=== PATIENT | male | born 1995 | race Caucasian/White ===

== ENCOUNTER 2023-07-05 13:29 | Emergency (ER) | payer MEDICAID, OTHER, SELFPAY ==
--- NOTE | ~2023-07-05 | XR_ITS ---
EXAMINATION: XR HAND, LEFT CLINICAL INFORMATION: Pain status post fall. COMPARISON: None available. TECHNIQUE: Limited two-view examination. The patient was unable to hold still during the exam. FINDINGS: There is a comminuted fracture at the base of the fifth metacarpal. Due to the limited views, the presence or absence of articular involvement is unknown. There is significant soft tissue swelling over the fracture. XR/XR hand LT min 3V IMPRESSION: Limited exam. Comminuted fracture base of the fifth metacarpal.
[2023-07-05 13:56] VITALS: BMI 27.1
[2023-07-05 14:16] VITALS: BP 137/88; PULSE 76; RESP 18; TEMP 36.4; O2SAT 99
--- NOTE | 2023-07-05 16:18 | HO.SUDE ---
Addendum entered by Frnacisco Lucia 07/05/23 17:15: Pt no longer interested in ATS at this time and would like to go home. Recovery resources were provided. Original Note: Met with pt in ED22[facility] who is here for potential OD. Pt reports taking about 2 bundles of heroin intravenously but doesn't usually use that amount. Pt informs he didn't intend to take more than usual today and this would be his first time overdosing. Pt has been using daily for the past 5 years with no history or MAT or ATS and was not sure how to get clean needles. Pt states he has been crashing on his friends couch and is otherwise homeless. At this time pt is interested in ATS and is willing to go anywhere. Harm reduction and overdose prevention was reviewed with pt who verbalized understanding and has no other questions or concerns at this time.
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
[2023-07-05 16:52] VITALS: BP 109/78; PULSE 82; RESP 16; TEMP 36.8; O2SAT 100
[2023-07-05] MEDS: Naloxone HCl Nasal TAKE HOME 4 MG SPRAY 8 MG NOSTRILALT (17:26)
--- NOTE | 2023-07-05 18:20 | PC.NURSE ---
pt seen by ice skating coach, cleared for discharge. this rn spoke with pt's mother Tracey [phone]. his mother will send an uber to pick him up from the er. waiting for uber to arrive at this time. meal tray given
--- NOTE | 2023-07-05 20:21 | PC.NURSE ---
Mom contacting multiple times by this RN as she was suposed to be arranging transportation home. Per mom, she has been unable to get on contact with the person who was supposed to be coming to transport pt home. Ronel obtained for this pt. Pt provided with home narcan and escorted to [facility] to retrieve his belongings.
--- NOTE | 2023-07-05 20:32 | ECG_ITS ---
Test Reason : pain Blood Pressure : / mmHG Vent. Rate : 087 BPM Atrial Rate : 087 BPM P-R Int : 152 ms QRS Dur : 074 ms QT Int : 400 ms P-R-T Axes : 000 077 051 degrees QTc Int : 481 ms Normal sinus rhythm Possible Early repolarization Otherwise normal ECG No previous ECGs available Referred By: Aric Ribeiro Electronically Signed By:LESLEY OLSON MD
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
--- NOTE | 2023-07-05 20:43 | PC.NURSE ---
Sitter at bedside.
[2023-07-05 21:36] LABS: MANUAL DIFF FLAG NO
[2023-07-05 21:38] LABS: Basophils Absolute Auto 0.1 X10*3/uL (0.0-0.2); Basophils Percent Auto 0.5 % (0-2); Eosinophils Absolute Auto 0.1 X10*3/uL (0.0-0.4); Eosinophils Percent Auto 0.6 % (0-4); Hematocrit 38.3 % (42.0-52.0); Hemoglobin 12.6 g/dl (14.0-18.0); Imm Gran Abs Auto 0.02 X10*3/uL (0.00-0.03); Imm Gran Pct Auto 0.2 % (0.0-0.4); Lymphocytes Absolute Auto 2.7 X10*3/uL (1.2-4.9); Lymphocytes Percent Auto 23.4 % (20-40); Mean Corpuscular HGB Conc 32.9 g/dl (31.0-36.0); Mean Corpuscular Hemoglobin 26.9 pg (27.0-33.0); Mean Corpuscular Volume 81.8 fL (80.0-98.0); Mean Platelet Volume 10.7 fL (9.4-12.4); Monocytes Absolute Auto 0.8 X10*3/uL (0.1-1.2); Monocytes Percent Auto 7.1 % (2-11); Neutrophils Absolute Auto 7.7 x10*3/uL (2.0-8.3); Neutrophils Percent Auto 68.2 % (45-73); Platelet Count 351 X10*3/uL (160-400); Red Blood Count 4.68 X10*6/uL (4.60-5.80); Red Cell Distribution Width 15.9 % (11.0-16.0); White Blood Count 11.4 X10*3/uL (4.8-10.8)
[2023-07-05 22:01] LABS: Acetaminophen LAB < 17 mcg/mL (<30); Alanine Aminotransferase 17 U/L (0-40); Albumin Level 4.3 g/dL (3.5-5.0); Alkaline Phosphatase 86 U/L (39-117); Anion Gap 16 (12-20); Aspartate Amino Transferase 28 U/L (5-37); Bilirubin Total 0.6 mg/dL (0.0-1.0); Blood Urea Nitrogen 13 mg/dL (9-16); Calcium 9.7 mg/dL (8.4-10.2); Carbon Dioxide 21 mmol/L (22-29); Chloride 105 mmol/L (96-108); Creatinine Clr Calc Pharmacy 170.9; Estimated Glomerular Filt Rate > 60; Ethanol < 10 mg/dL; Glucose Random 97 mg/dL (60-115); Lipase 46 U/L (8-78); Potassium 3.9 mmol/L (3.3-5.1); Salicylate < 5.0 mg/dL (15-30); Sodium 138 mmol/L (135-145); Total Protein 8.8 g/dL (6.5-8.0)
[2023-07-05 22:16] VITALS: BP 138/77; PULSE 80; RESP 16; TEMP 36.7; O2SAT 100
[2023-07-05 23:51] LABS: Amphetamine Screen Urine POSITIVE (Not Detect); Barbiturates, Urine Not Detected (Not Detect); Benzodiazepines Screen Urine Not Detected (Not Detect); Cannabinoid Screen Urine Not Detected (Not Detect); Cocaine Screen Urine Not Detected (Not Detect); Fentanyl, urine POSITIVE (Not Detect); Opiate Screen Urine Not Detected (Not Detect); Phencyclidine Screen Urine Not Detected (Not Detect)
[2023-07-05 23:55] LABS: Appearance Urine Clear; Color Urine Yellow; Glucose Urine UA Negative (Negative); Leukocyte Esterase Urine Small (1+) (Negative); Nitrite Urine Negative (Negative); UMIC TRIGGER UACC YES; Urine Blood Negative (Negative); Urine Ketones Negative (Negative); Urine Protein Negative (Neg-Trace)
[2023-07-06] LABS: Bacteria Urine None Seen (None Seen); Hyaline Casts Urine 0-2 /LPF (0-2); RBC Urine 0-2 /HPF (0-2); Squamous Epithelial Cell Urine 0-2 /HPF (0-2); UACC Culture Trigger YES
[2023-07-06 04:54] VITALS: BP 123/69; PULSE 87; RESP 16; TEMP 37.2; O2SAT 98
--- NOTE | 2023-07-06 04:57 | PC.NURSE ---
assumed care of pt
--- NOTE | 2023-07-06 04:59 | PC.NURSE ---
assumed care of pt
[2023-07-06] MEDS: OLANZapine 10 MG VIAL IM (08:39)
[2023-07-06] MEDS: LORazepam 2 MG/ML VIAL IM ×2 (08:47→10:59)
--- NOTE | 2023-07-06 09:01 | PC.NURSE ---
patients perception of reality is still a little skewed, asked about us killing him. t/w provided some water and told him he was welcome to nap.
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
[2023-07-06 09:45] VITALS: BP 98/69; PULSE 128
--- NOTE | 2023-07-06 09:56 | PC.NURSE ---
client had witnessed fall in room client was being watched on screen due to unusual behaviors, client resisting redirection
[2023-07-06] MEDS: diphenhydrAMINE HCL 50 MG/ML VIAL IM (11:01)
--- NOTE | 2023-07-06 11:04 | PC.NURSE ---
Patient returned from POD, hallucinating, restless. Attempting to slip legs between side rails of bed. Patient consented to IM injections being given.
[2023-07-06 11:25] VITALS: BP 120/61; PULSE 79
--- NOTE | 2023-07-06 11:55 | PC.NURSE ---
Resting comfortably, breathing even and unlabored, 1:1 remains at bedside for safety
--- NOTE | 2023-07-06 13:00 | PC.NURSE ---
Resting comfortably with eyes closed, breathing even and unlabored
--- NOTE | 2023-07-06 13:16 | PC.NURSE ---
Patient stood up from bed and urinated through clothes and onto floor. Continues with hallucinations reaching for objects in the air. Patient changed and seated in chair in room. 1:[address]
--- NOTE | 2023-07-06 15:57 | PC.NURSE ---
Patient calm, resting quietly. Breathing even and unlabored 1:1 remains at bedside
--- NOTE | 2023-07-06 16:54 | MHC.EDTECH ---
Nurse instructed this case technician to hold off on vitals and let patient sleep.
--- NOTE | 2023-07-06 18:38 | PC.NURSE ---
Continues to rest comfortably in bed, no s/s of pain or discomfort, breathing even and unlabored
--- NOTE | 2023-07-06 19:36 | PC.NURSE ---
assumed care of pt at this time; 1:1 sitter at bedside. pt sleeping in stretcher respirations even and unlabored.
[2023-07-06 20:10] VITALS: PULSE 77
--- NOTE | 2023-07-06 20:17 | PC.NURSE ---
Addendum entered by Madhuri Rico 07/06/23 22:07: REGINA ordered zofran which pt refused as vomiting resolved. Original Note: pt had an episode of vomiting; requested meds to help with n/v. cows 5. Reji TAPIA aware.
[2023-07-06 20:19] VITALS: PULSE 79; RESP 16; O2SAT 100
[2023-07-06] MEDS: Ondansetron ODT 4 MG TAB.RAPDIS TRANSLINGU (22:49)
--- NOTE | 2023-07-06 22:54 | PC.NURSE ---
pt now requesting zofran as started feeling nauseous; zofran given per Reji TAPIA approval.
[2023-07-07 07:34] VITALS: BP 115/71; PULSE 92; RESP 12; O2SAT 98
--- NOTE | 2023-07-07 08:20 | PC.NURSE ---
attempted to medicate pt with 2mg PO Ativan for a COWS assessment of 12. pt asleep at this time. will hold off on medicating until pt awake. [plan to splint pts L hand when he wakes as well. pt resting in NAD in the stretcher at this time, skin PWD.
[2023-07-07] MEDS: LORazepam 1 MG TABLET 2 MG PO (10:02)
--- NOTE | 2023-07-07 10:24 | MHC.EDTECH ---
Ulnar gutter splint was placed on L hand by this song writer. pt tolerated well, REGINA Newell aware
--- NOTE | 2023-07-07 12:34 | PM.PSYCN ---
History of Present Illness Date of Service: 07/07/2023 Chief Complaint: OPIOD USE Reason for Consult: agitation Requesting physician: Sina Mcclendon Discussed with referring provider: Yes Sources of Information: patient interviewed, chart reviewed and crisis/core team assessment reviewed HPI Narrative: Mr. Aguirre is a 28 year-old male with hx of opioid and metaamphenatine use disorder who presented twice on 07/05, agitated, combative. His utox was positive for fentanyl and amphetamines. Pt receved olanzapine and ativan for agitation. Today, pt presents as calmer, but in physical distress due to opioid withdrawal. He reports muscle spams all over. He reports loose stools, Gi discomfort. No sweating. VS stable. No diaphoresis. pt denies SI/HI. He reports he was confused during the past few days. He denies VH/AH and does not appear internally preoccupied. He is in physical distress, with loose stool, and stomach cramps. He also reports muscle aches. He is calmer and splint was finally able to be placed. Diagnostics Vital Signs (24Hr): Vital Signs - 24 hr 07/06/23 20:19 07/07/23 07:34 Pulse Rate 79 92 Respiratory Rate 16 12 Blood Pressure 115/71 Pulse Oximetry 100 98 Oxygen Delivery Method Room Air Room Air BMI result Body Mass Index 27.1 Labs 07/05/23 21:30 07/05/23 21:30 Labs: Laboratory Results - last 48 hr 07/05/23 07/05/23 07/05/23 21:30 23:36 23:36 WBC 11.4 H RBC 4.68 Hgb 12.6 L Hct 38.3 L MCV 81.8 MCH 26.9 L MCHC 32.9 RDW 15.9 Plt Count 351 MPV 10.7 Immature Gran % (Auto) 0.2 Neut % (Auto) 68.2 Lymph % (Auto) 23.4 [place] % (Auto) 7.1 Eos % (Auto) 0.6 Baso % (Auto) 0.5 Lymph # (Auto) 2.7 [place] # (Auto) 0.8 Eos # (Auto) 0.1 Baso # (Auto) 0.1 Abs Immat Gran (auto) 0.02 Absolute Neuts (auto) 7.7 Absolute Nucleated RBC 0.000 Nucleated RBC % (auto) 0.0 Sodium 138 Potassium 3.9 Chloride 105 Carbon Dioxide 21 L Anion Gap 16 BUN 13 Creatinine 0.70 Estim Creat Clear Calc 170.9 Estimated GFR > 60 Random Glucose 97 Calcium 9.7 Total Bilirubin 0.6 AST 28 ALT 17 Alkaline Phosphatase 86 Total Protein 8.8 H Albumin 4.3 Lipase 46 Urine Color Yellow Cancelled Urine Appearance Clear Urine pH Ur Specific [place] Urine Protein Urine Glucose (UA) Urine Ketones Urine Blood Urine Nitrite Ur Leukocyte Esterase Urine RBC Urine WBC Urine WBC Clumps Ur Squamous Epith Cells Ur Transition Epith Cell Ur Renal Epithelial Cell Calcium Oxalate Crystal Leucine Crystals Cystine Crystals Tyrosine Crystals Other Crystals Urine Bacteria Urine Parasites Bilirubin Casts Epithelial Casts Fatty Casts Hyaline Casts Granular Casts Waxy Casts Broad Casts RBC Casts WBC Casts Other Casts Urine Trichomonas Urine Yeast Salicylates < 5.0 L Urine Opiates Screen Urine Fentanyl Screen Acetaminophen < 17 Ur Barbiturates Screen Ur Phencyclidine Scrn Ur Amphetamines Screen U Benzodiazepines Scrn Urine Cocaine Screen U Marijuana (THC) Screen Ethyl Alcohol < 10 07/05/23 07/05/23 07/05/23 23:36 23:36 23:36 WBC RBC Hgb Hct MCV MCH MCHC RDW Plt Count MPV Immature Gran % (Auto) Neut % (Auto) Lymph % (Auto) [place] % (Auto) Eos % (Auto) Baso % (Auto) Lymph # (Auto) [place] # (Auto) Eos # (Auto) Baso # (Auto) Abs Immat Gran (auto) Absolute Neuts (auto) Absolute Nucleated RBC Nucleated RBC % (auto) Sodium Potassium Chloride Carbon Dioxide Anion Gap BUN Creatinine Estim Creat Clear Calc Estimated GFR Random Glucose Calcium Total Bilirubin AST ALT Alkaline Phosphatase Total Protein Albumin Lipase Urine Color Urine Appearance Cancelled Urine pH 8.0 Cancelled Ur Specific [place] 1.010 Cancelled Urine Protein Negative Urine Glucose (UA) Urine Ketones Urine Blood Urine Nitrite Ur Leukocyte Esterase Urine RBC Urine WBC Urine WBC Clumps Ur Squamous Epith Cells Ur Transition Epith Cell Ur Renal Epithelial Cell Calcium Oxalate Crystal Leucine Crystals Cystine Crystals Tyrosine Crystals Other Crystals Urine Bacteria Urine Parasites Bilirubin Casts Epithelial Casts Fatty Casts Hyaline Casts Granular Casts Waxy Casts Broad Casts RBC Casts WBC Casts Other Casts Urine Trichomonas Urine Yeast Salicylates Urine Opiates Screen Urine Fentanyl Screen Acetaminophen Ur Barbiturates Screen Ur Phencyclidine Scrn Ur Amphetamines Screen U Benzodiazepines Scrn Urine Cocaine Screen U Marijuana (THC) Screen Ethyl Alcohol 07/05/23 07/05/23 07/05/23 23:36 23:36 23:36 WBC RBC Hgb Hct MCV MCH MCHC RDW Plt Count MPV Immature Gran % (Auto) Neut % (Auto) Lymph % (Auto) [place] % (Auto) Eos % (Auto) Baso % (Auto) Lymph # (Auto) [place] # (Auto) Eos # (Auto) Baso # (Auto) Abs Immat Gran (auto) Absolute Neuts (auto) Absolute Nucleated RBC Nucleated RBC % (auto) Sodium Potassium Chloride Carbon Dioxide Anion Gap BUN Creatinine Estim Creat Clear Calc Estimated GFR Random Glucose Calcium Total Bilirubin AST ALT Alkaline Phosphatase Total Protein Albumin Lipase Urine Color Urine Appearance Urine pH Ur Specific [place] Urine Protein Cancelled Urine Glucose (UA) Negative Cancelled Urine Ketones Negative Cancelled Urine Blood Negative Urine Nitrite Ur Leukocyte Esterase Urine RBC Urine WBC Urine WBC Clumps Ur Squamous Epith Cells Ur Transition Epith Cell Ur Renal Epithelial Cell Calcium Oxalate Crystal Leucine Crystals Cystine Crystals Tyrosine Crystals Other Crystals Urine Bacteria Urine Parasites Bilirubin Casts Epithelial Casts Fatty Casts Hyaline Casts Granular Casts Waxy Casts Broad Casts RBC Casts WBC Casts Other Casts Urine Trichomonas Urine Yeast Salicylates Urine Opiates Screen Urine Fentanyl Screen Acetaminophen Ur Barbiturates Screen Ur Phencyclidine Scrn Ur Amphetamines Screen U Benzodiazepines Scrn Urine Cocaine Screen U Marijuana (THC) Screen Ethyl Alcohol 07/05/23 07/05/23 07/05/23 23:36 23:36 23:36 WBC RBC Hgb Hct MCV MCH MCHC RDW Plt Count MPV Immature Gran % (Auto) Neut % (Auto) Lymph % (Auto) [place] % (Auto) Eos % (Auto) Baso % (Auto) Lymph # (Auto) [place] # (Auto) Eos # (Auto) Baso # (Auto) Abs Immat Gran (auto) Absolute Neuts (auto) Absolute Nucleated RBC Nucleated RBC % (auto) Sodium Potassium Chloride Carbon Dioxide Anion Gap BUN Creatinine Estim Creat Clear Calc Estimated GFR Random Glucose Calcium Total Bilirubin AST ALT Alkaline Phosphatase Total Protein Albumin Lipase Urine Color Urine Appearance Urine pH Ur Specific [place] Urine Protein Urine Glucose (UA) Urine Ketones Urine Blood Cancelled Urine Nitrite Negative Cancelled Ur Leukocyte Esterase Small (1+) H Cancelled Urine RBC 0-2 Urine WBC Urine WBC Clumps Ur Squamous Epith Cells Ur Transition Epith Cell Ur Renal Epithelial Cell Calcium Oxalate Crystal Leucine Crystals Cystine Crystals Tyrosine Crystals Other Crystals Urine Bacteria Urine Parasites Bilirubin Casts Epithelial Casts Fatty Casts Hyaline Casts Granular Casts Waxy Casts Broad Casts RBC Casts WBC Casts Other Casts Urine Trichomonas Urine Yeast Salicylates Urine Opiates Screen Urine Fentanyl Screen Acetaminophen Ur Barbiturates Screen Ur Phencyclidine Scrn Ur Amphetamines Screen U Benzodiazepines Scrn Urine Cocaine Screen U Marijuana (THC) Screen Ethyl Alcohol 07/05/23 07/05/23 07/05/23 23:36 23:36 23:36 WBC RBC Hgb Hct MCV MCH MCHC RDW Plt Count MPV Immature Gran % (Auto) Neut % (Auto) Lymph % (Auto) [place] % (Auto) Eos % (Auto) Baso % (Auto) Lymph # (Auto) [place] # (Auto) Eos # (Auto) Baso # (Auto) Abs Immat Gran (auto) Absolute Neuts (auto) Absolute Nucleated RBC Nucleated RBC % (auto) Sodium Potassium Chloride Carbon Dioxide Anion Gap BUN Creatinine Estim Creat Clear Calc Estimated GFR Random Glucose Calcium Total Bilirubin AST ALT Alkaline Phosphatase Total Protein Albumin Lipase Urine Color Urine Appearance Urine pH Ur Specific [place] Urine Protein Urine Glucose (UA) Urine Ketones Urine Blood Urine Nitrite Ur Leukocyte Esterase Urine RBC Cancelled Urine WBC 11-20 H Cancelled Urine WBC Clumps Cancelled Ur Squamous Epith Cells 0-2 Cancelled Ur Transition Epith Cell Cancelled Ur Renal Epithelial Cell Cancelled Calcium Oxalate Crystal Cancelled Leucine Crystals Cancelled Cystine Crystals Cancelled Tyrosine Crystals Cancelled Other Crystals Cancelled Urine Bacteria None Seen Urine Parasites Bilirubin Casts Epithelial Casts Fatty Casts Hyaline Casts Granular Casts Waxy Casts Broad Casts RBC Casts WBC Casts Other Casts Urine Trichomonas Urine Yeast Salicylates Urine Opiates Screen Urine Fentanyl Screen Acetaminophen Ur Barbiturates Screen Ur Phencyclidine Scrn Ur Amphetamines Screen U Benzodiazepines Scrn Urine Cocaine Screen U Marijuana (THC) Screen Ethyl Alcohol 07/05/23 07/05/23 23:36 23:36 WBC RBC Hgb Hct MCV MCH MCHC RDW Plt Count MPV Immature Gran % (Auto) Neut % (Auto) Lymph % (Auto) [place] % (Auto) Eos % (Auto) Baso % (Auto) Lymph # (Auto) [place] # (Auto) Eos # (Auto) Baso # (Auto) Abs Immat Gran (auto) Absolute Neuts (auto) Absolute Nucleated RBC Nucleated RBC % (auto) Sodium Potassium Chloride Carbon Dioxide Anion Gap BUN Creatinine Estim Creat Clear Calc Estimated GFR Random Glucose Calcium Total Bilirubin AST ALT Alkaline Phosphatase Total Protein Albumin Lipase Urine Color Urine Appearance Urine pH Ur Specific [place] Urine Protein Urine Glucose (UA) Urine Ketones Urine Blood Urine Nitrite Ur Leukocyte Esterase Urine RBC Urine WBC Urine WBC Clumps Ur Squamous Epith Cells Ur Transition Epith Cell Ur Renal Epithelial Cell Calcium Oxalate Crystal Leucine Crystals Cystine Crystals Tyrosine Crystals Other Crystals Urine Bacteria Cancelled Urine Parasites Cancelled Bilirubin Casts Cancelled Epithelial Casts Cancelled Fatty Casts Cancelled Hyaline Casts 0-2 Cancelled Granular Casts Cancelled Waxy Casts Cancelled Broad Casts Cancelled RBC Casts Cancelled WBC Casts Cancelled Other Casts Cancelled Urine Trichomonas Cancelled Urine Yeast Cancelled Salicylates Urine Opiates Screen Not Detected Urine Fentanyl Screen POSITIVE H Acetaminophen Ur Barbiturates Screen Not Detected Ur Phencyclidine Scrn Not Detected Ur Amphetamines Screen POSITIVE H U Benzodiazepines Scrn Not Detected Urine Cocaine Screen Not Detected U Marijuana (THC) Screen Not Detected Ethyl Alcohol Imaging Radiology Impressions: ITS Impressions Hand X-Ray 07/06/23 11:24 IMPRESSION: Limited exam. Comminuted fracture base of the fifth metacarpal. Mental Status Exam Mental Status Exam Narrative: Appearance: wearing hospital gown, malnourish, in physical discomfort due to opioid withdrawal. Behavior: cooperative Psychomotor: no agitation or retardation noted Speech: clear, normal rate/rhythm/volume, spontaneous TP: linear TC: feeling physically sick but less confused than when he came to the hospital Mood: not well Affect: congruent Si: denies HI: denies VH/AH: none Delusions: none Insight/judgment: poor x 2 Memory/cog: alert, oriented x 3. grossly intact to conversational testing Medications Medications Current Medications Loperamide HCl (Loperamide Hcl 2 Mg Capsule) 2 mg PO Q4H PRN PRN Reason: loose stool Allergies Allergies Allergy/AdvReac Type Severity Reaction Status Date / Time No Known Allergies Allergy Verified 07/05/23 14:22 Assessment & Plan Assessment & Plan (1) Amphetamine-induced psychotic disorder: Status: Acute Code(s): F15.959 - Other stimulant use, unspecified with stimulant-induced psychotic disorder, unspecified (2) Opioid use disorder, moderate, dependence: Status: Acute Code(s): F11.20 - Opioid dependence, uncomplicated (3) Methamphetamine use disorder, moderate, dependence: Status: Acute Code(s): F15.20 - Other stimulant dependence, uncomplicated Plan Mr. Aguirre is a 28 year-old male with hx of opioid and methamphetamine use disorder who presented to [facility] ED on 07/05 agitated, psychosis and paranoia. Pt has right hand fracture. He required IM medications yesterday and day before due to agitation and psychosis. Today, he presents calmer with no signs of psychosis but in active opioid withdrawal. Pt reports he would like to start suboxone for MAT. Consult for addiction medicine placed. Comfort medications ordered including loperamide, flexeril. He denies SI/HI. No signs of psychosis today or delusional content. PLAN 1. Addiction medicine consult for suboxone ordered 2. No need for psychiatric inpatient level of care. 3. Give Narcan prior to discharge. 4> give list of resources should he agrees to follow up outpatient. Total time managing care of this patient today ____ minutes.
[2023-07-07] MEDS: Loperamide HCl 2 MG CAPSULE 4 MG PO (12:55)
[2023-07-07] MEDS: Cyclobenzaprine HCl 10 MG TABLET PO (12:55)
--- NOTE | 2023-07-07 13:10 | PC.NURSE ---
pt requesting ativan for anxiety at this time. will inform Osiris TAPIA
--- NOTE | 2023-07-07 13:28 | MHC.RECOVRN ---
Met with pt in [facility] after pt expressed desire in Suboxone. Pt had presented to ED after substance use. Pt reports using heroin/fentanyl, IV, 2-3 bundles daily, last use Wednesday 07/04, 4 bags. Pt also reports methamphetamine use, .2 grams daily, IV. Pt currently reporting withdrawal symptoms including diaphoresis, body aches, anxiety. Pt would like to initiate Suboxone. Discussed precipitated withdrawal, pt has experienced this before. Discussed Suboxone dose, pt agreeable to 2 mg film. Discussed with ED provider, plan to administer 2 mg Suboxone and reassess.
[2023-07-07] MEDS: Buprenorphine/Naloxone 2/0.5mg FILM 1 FILM SUBLINGUAL (14:08)
[2023-07-07] MEDS: Acetaminophen 325 MG TABLET 975 MG PO (14:08)
[2023-07-07 14:19] VITALS: BP 126/73; PULSE 119; RESP 19; O2SAT 100
[2023-07-07] MEDS: Naloxone HCl Nasal TAKE HOME 4 MG SPRAY 8 MG NOSTRILALT (14:34)
== END 2023-07-07 15:13 | disposition home or self-care (01) ==
PROVIDERS: Physician Assistant; Emergency Provider Emergency Medicine
DX: F11.20 Opioid dependence, uncomplicated (principal); F15.259 Other stimulant dependence with stimulant-induced psychotic disorder, unspecified; R45.1 Restlessness and agitation; F19.10 Other psychoactive substance abuse, uncomplicated; S62.307D Unspecified fracture of fifth metacarpal bone, left hand, subsequent encounter for fracture with routine healing; X58.XXXD Exposure to other specified factors, subsequent encounter
CPT/HCPCS: 29125; 36415; 73130; 80053; 80143; 80179; 80307; 81001; 83690; 85025; 87086; 93005; 96372; 99285; J1200; J2060; J2359; S9485

== ENCOUNTER → 2023-07-05 14:27 | Outpatient (BNV) | payer MEDICAID, SELFPAY | PROVIDERS: Emergency Provider Emergency Medicine; Visit Provider Social Worker | DX: F15.959 Other stimulant use, unspecified with stimulant-induced psychotic disorder, unspecified (principal); F11.20 Opioid dependence, uncomplicated | CPT/HCPCS: 99285 ==